=== PATIENT | female | born 1985 | race Caucasian/White ===

== ENCOUNTER 2018-02-10 11:57 | Emergency (ER) | payer OTHER ==
[~2018-02-10] VITALS: Ht 154.9 cm; Wt 62.6 kg
--- NOTE | 2018-02-10 12:08 | NUR ---
MSE DONE BY DR SIMMONS IN ROOM 03A
[2018-02-10] MEDS ORDERED: FLUCONAZOLE 100 MG TABLET PO ONE (12:15)
--- NOTE | 2018-02-10 12:22 | NUR ---
Patient discharged to home in stable conditon. Written and verbal after care instructions given. Patient verbalizes understanding of instructions.
[2018-02-10 12:23] VITALS: BP 128/78
== END 2018-02-10 12:26 | disposition home or self-care (01) ==
LOC: ER 11:59
DX: L03.115 Cellulitis of right lower limb (principal); F11.10 Opioid abuse, uncomplicated; Z88.8 Allergy status to other drugs, medicaments and biological substances
CPT/HCPCS: 99283; A4663

== ENCOUNTER 2018-02-28 23:42 | Emergency (ER) | payer OTHER ==
[~2018-02-28] VITALS: Ht 154.9 cm; Wt 61.2 kg
[2018-02-28] MEDS ORDERED: RISP3TAB5 PO (23:58)
--- NOTE | 2018-03-01 00:44 | NUR ---
Patient discharged to home in stable conditon. Written and verbal after care instructions given. Patient verbalizes understanding of instructions.
[2018-03-01 00:45] VITALS: BP 141/88
[2018-03-04] MEDS ORDERED: HYDR-3326 PO (15:19)
[2018-03-04] MEDS ORDERED: SULF1TAB3 PO (15:19)
[2018-03-04] MEDS ORDERED: DOCU100C36 PO (15:19)
== END 2018-03-01 00:58 | disposition home or self-care (01) ==
LOC: ER 23:46
DX: L03.115 Cellulitis of right lower limb (principal); F11.10 Opioid abuse, uncomplicated; F17.210 Nicotine dependence, cigarettes, uncomplicated; Z88.8 Allergy status to other drugs, medicaments and biological substances; Z79.899 Other long term (current) drug therapy
CPT/HCPCS: 99283; A4663

== ENCOUNTER 2018-03-02 12:22 | Inpatient (IN) | payer OTHER ==
[~2018-03-02] VITALS: Ht 154.9 cm; Wt 61.2 kg
[~2018-03-02 12:22] MED LIST: RISP3TAB5 PO
[2018-03-02] MEDS ORDERED: IV NORMAL SALINE 1000 ML BAG IV ONE (12:45)
[2018-03-02] MEDS ORDERED: VANCOMYCIN IV 1,000 MG in IV DEXTROSE 5% 250 ML IV ONE (12:45)
[2018-03-02] MEDS ORDERED: VANCOMYCIN IV 200 ML ONE (12:56)
[2018-03-02 13:09] LABS: BASOPHILS # (AUTO) 0.1 K/uL (0.0-8.0); EOSINOPHILS # (AUTO) 0.4 K/uL (0.0-0.7); EOSINOPHILS % (AUTO) 7.5 % (0.0-7.0); HEMATOCRIT 36.8 % (31.2-41.9); HEMOGLOBIN 12.3 g/dL (10.9-14.3); LYMPHOCYTES # (AUTO) 2.6 K/uL (20.0-40.0); LYMPHOCYTES % (AUTO) 47.7 % (20.5-51.5); MEAN CORPUSCULAR HEMOGLOBIN 29.4 uug (24.7-32.8); MEAN CORPUSCULAR HGB CONC 33 g/dL (32.3-35.6); MONOCYTES # (AUTO) 0.4 K/uL (2.0-10.0); MONOCYTES % (AUTO) 8.1 % (0.0-11.0); NEUTROPHILS % (AUTO) 35.7 % (38.5-71.5); PLATELET COUNT (AUTO) 274 K/uL (179-408); RED BLOOD CELL COUNT(AUTO) 4.19 MIL/uL (3.63-4.92); WHITE BLOOD COUNT (AUTO) 5.5 K/uL (3.8-11.8)
[2018-03-02 13:19] LABS: CREATININE 0.8 mg/dL (0.6-1.3); POTASSIUM 4.1 mmol/L (3.5-5.1)
[2018-03-02 13:25] LABS: BILIRUBIN,DIRECT 0.1 mg/dL (0.0-0.2); BILIRUBIN,TOTAL 0.3 mg/dL (0.2-1.0); TOTAL PROTEIN, SERUM 7.7 g/dL (6.4-8.2)
[2018-03-02 16:02] VITALS: BP 104/69
[2018-03-02] MEDS ORDERED: MAGNESIUM HYDROXIDE 30 ML LIQUID UDC PO PRN (18:30)
[2018-03-02] MEDS ORDERED: MORPHINE SULFATE 2 MG/1 ML DISP.SYRIN IV PRN (18:30)
[2018-03-02] MEDS ORDERED: HYDROCODONE/APAP 5-325MG TABLET PO PRN (18:30)
[2018-03-02] MEDS ORDERED: ACETAMINOPHEN 325 MG TABLET PO PRN (18:30)
[2018-03-02] MEDS ORDERED: LORAZEPAM 0.5 MG TABLET PO PRN (18:30)
[2018-03-02] MEDS ORDERED: ONDANSETRON 4 MG/2 ML VIAL IV PRN (18:30)
[2018-03-02 19:30] VITALS: BP 112/69
[2018-03-02] MEDS: PIPERACILLIN/TAZOBACTAM/D5W 50 ML IV SCH (20:52)
[2018-03-02] MEDS ORDERED: DOCUSATE SODIUM 250 MG CAPSULE PO SCH (21:00)
[2018-03-02] MEDS: DOCUSATE SODIUM 100 MG CAPSULE PO SCH (21:31)
[2018-03-02] MEDS: risperiDONE 1 MG TABLET PO SCH (21:38)
[2018-03-03] MEDS: PIPERACILLIN/TAZOBACTAM/D5W 50 ML IV SCH ×4 (01:18→20:00)
[2018-03-03] MEDS: VANCOMYCIN IV 1 G in PREMIXED 0 EACH IV SCH ×2 (03:14→17:00)
[2018-03-03 04:06] VITALS: BP 112/69
[2018-03-03 04:48] VITALS: BP 106/68
[2018-03-03 06:32] LABS: BASOPHILS # (AUTO) 0.2 K/uL (0.0-8.0); BASOPHILS % (AUTO) 2.4 % (0.0-2.0); EOSINOPHILS # (AUTO) 0.4 K/uL (0.0-0.7); EOSINOPHILS % (AUTO) 6.6 % (0.0-7.0); HEMATOCRIT 36.1 % (31.2-41.9); HEMOGLOBIN 12.1 g/dL (10.9-14.3); LYMPHOCYTES # (AUTO) 2.7 K/uL (20.0-40.0); LYMPHOCYTES % (AUTO) 42.9 % (20.5-51.5); MEAN CORPUSCULAR HEMOGLOBIN 29.5 uug (24.7-32.8); MEAN CORPUSCULAR HGB CONC 34 g/dL (32.3-35.6); MEAN CORPUSCULAR VOLUME 87.9 fL (75.5-95.3); MONOCYTES # (AUTO) 0.5 K/uL (2.0-10.0); MONOCYTES % (AUTO) 7.9 % (0.0-11.0); NEUTROPHILS # (AUTO) 2.5 K/uL (1.8-8.9); NEUTROPHILS % (AUTO) 40.2 % (38.5-71.5); PLATELET COUNT (AUTO) 237 K/uL (179-408); RED BLOOD CELL COUNT(AUTO) 4.11 MIL/uL (3.63-4.92); WHITE BLOOD COUNT (AUTO) 6.3 K/uL (3.8-11.8)
[2018-03-03] MEDS: PANTOPRAZOLE SODIUM 40 MG TABLET.DR PO SCH ×2 (07:00→07:05)
[2018-03-03 07:04] LABS: BILIRUBIN,TOTAL 0.5 mg/dL (0.2-1.0); CREATININE 0.7 mg/dL (0.6-1.3); MAGNESIUM 1.7 mg/dL (1.8-2.4); PHOSPHOROUS 3.5 mg/dL (2.5-4.9); POTASSIUM 3.9 mmol/L (3.5-5.1); TOTAL PROTEIN, SERUM 6.4 g/dL (6.4-8.2)
[2018-03-03 08:31] LABS: NEUTROPHILS % (MANUAL) 41 % (42-75)
[2018-03-03 08:32] LABS: BAND % (MANUAL) 0 % (0-10); BASOPHILS % (MANUAL) 1 % (0-2); EOSINOPHILS % (MANUAL) 5 % (0-8); LYMPHOCYTES % (MANUAL) 43 % (20-40); MONOCYTES % (MANUAL) 10 % (2-10)
[2018-03-03] MEDS: risperiDONE 1 MG TABLET PO SCH ×2 (09:00→21:00)
[2018-03-03] MEDS ORDERED: MAGNESIUM OXIDE 400 MG TABLET PO ONE (10:15)
[2018-03-03 11:54] VITALS: BP 119/75
[2018-03-03] MEDS ORDERED: LORAZEPAM 2 MG/1 ML VIAL IV PRN (12:00)
[2018-03-03 20:56] VITALS: BP 123/78
[2018-03-03] MEDS: DOCUSATE SODIUM 100 MG CAPSULE PO SCH (21:00)
[2018-03-04] MEDS: PIPERACILLIN/TAZOBACTAM/D5W 50 ML IV SCH ×2 (02:00→08:00)
[2018-03-04 04:00] VITALS: BP 120/77
[2018-03-04] MEDS: VANCOMYCIN IV 1 G in PREMIXED 0 EACH IV SCH (06:20)
[2018-03-04] MEDS: PANTOPRAZOLE SODIUM 40 MG TABLET.DR PO SCH (06:20)
[2018-03-04] MEDS: risperiDONE 1 MG TABLET PO SCH (08:23)
[2018-03-04] MEDS ORDERED: ALPRAZOLAM 0.25 MG TABLET PO SCH (08:30)
[2018-03-04] MEDS ORDERED: ALPRAZOLAM 0.5 MG TABLET PO PRN (08:45)
[2018-03-04] MEDS ORDERED: SULFAMETH/TRIMETH 800/160 MG TABLET PO SCH (11:15)
[2018-03-04 11:27] VITALS: BP 123/83
[2018-03-04] MEDS ORDERED: HYDR-3326 PO (15:19)
[2018-03-04] MEDS ORDERED: SULF1TAB3 PO (15:19)
[2018-03-04] MEDS ORDERED: DOCU100C36 PO (15:19)
== END 2018-03-04 15:44 | disposition home or self-care (01) | DRG 383 ==
LOC: ER 12:23 → MED 14:58
PROVIDERS: ADMIT Internal Medicine; ATTEND Internal Medicine
DX: L03.115 Cellulitis of right lower limb (principal); F25.9 Schizoaffective disorder, unspecified; F11.10 Opioid abuse, uncomplicated; F15.10 Other stimulant abuse, uncomplicated; Z91.14 Patient's other noncompliance with medication regimen; Z79.899 Other long term (current) drug therapy
CPT/HCPCS: 36415; 70030-TC; 71045; 83605; 83690; 83735; 84100; 84703; 85025; 85730; 87040; 93005; A4663; J2060; J2543; J3370; J7030; J7050